=== PATIENT | female | born 1990 | race Caucasian/White ===

== ENCOUNTER 2024-12-12 12:45 | Day surgery (SDC) | payer OTHER ==
[~2024-12-12] VITALS: Ht 167.6 cm; Wt 145.2 kg
[~2024-12-12 12:45] MED LIST: EQL1CAP9 PO; IRON65TA2 PO; K2 P1TAB PO; ceFAZolin SOD 2 GM IV ONCE IV ONE
[2024-12-12 13:31] LABS: HEMATOCRIT 40.4 % (36.0-47.0); MEAN CORPUSCULAR HEMOGLOBIN 21.6 pg (27.0-33.0); MEAN CORPUSCULAR HGB CONC 29.7 g/dl (32.0-36.5); MEAN CORPUSCULAR VOLUME 72.7 fl (80.0-96.0); PLATELET COUNT, AUTOMATED 284 10^3/uL (150-450); RED BLOOD COUNT 5.56 10^6/uL (4.00-5.40); WHITE BLOOD COUNT 13.9 10^3/uL (4.0-10.0)
[2024-12-12] MEDS ORDERED: fentaNYL 100 MCG/2 ML INJECTION As Ordered ONE (16:17)
[2024-12-12] MEDS ORDERED: MIDAZOLAM INJ 2MG/2ML VIAL As Ordered ONE (16:17)
[2024-12-12] MEDS ORDERED: HYDROmorphone HCL 2MG/ML 1ML VIAL As Ordered ONE (16:17)
[2024-12-12] MEDS ORDERED: LIDOCAINE 2% 100MG/5ML SDV (FOR ANES.) As Ordered ONE (16:18)
[2024-12-12] MEDS ORDERED: SUGAMMADEX SODIUM 500 MG/5 ML VIAL (BRIDION) As Ordered ONE (16:18)
[2024-12-12] MEDS ORDERED: METOCLOPRAMIDE INJ 10MG/2ML VIAL As Ordered ONE (16:18)
[2024-12-12] MEDS ORDERED: propofoL 200 MG/20 ML VIAL As Ordered ONE (16:18)
[2024-12-12] MEDS ORDERED: ONDANSETRON 4MG 2ML VIAL As Ordered ONE (16:18)
[2024-12-12] MEDS ORDERED: ROCURONIUM BROMIDE 50MG/5ML VIAL As Ordered ONE (16:18)
[2024-12-12] MEDS ORDERED: KETOROLAC 30 MG/ML 1ML VIAL As Ordered ONE (16:40)
[2024-12-12] MEDS ORDERED: dexmedeTOMIDine (4MCG/ML)200MCG/50ML BTL (PRECEDEX) As Ordered ONE (17:37)
[2024-12-12] MEDS ORDERED: ACETAMINOPHEN 1000MG/100ML IV BAG As Ordered ONE (17:39)
[2024-12-12] MEDS: ceFAZolin SOD 3 GM in DEXTROSE 5% (D5W) MINI-BAG PLU 1... IV ONE (18:04)
[2024-12-12] MEDS ORDERED: ESMOLOL INJ 100MG/10ML VIAL As Ordered ONE (19:30)
[2024-12-12] MEDS ORDERED: fentaNYL 100 MCG/2 ML INJECTION IV PRN (20:40)
[2024-12-12] MEDS ORDERED: oxyCODONE 5MG TAB PO PRN (20:40)
[2024-12-12] MEDS: ONDANSETRON 4MG 2ML VIAL IV PRN (21:17)
[2024-12-12 22:05] VITALS: BP 133/67; TEMP 97.2; O2SAT 96
== END 2024-12-12 23:10 | disposition home or self-care (01) ==
LOC: M SDC 12:45
PROVIDERS: ATTEND Specialist
DX: N92.0 Excessive and frequent menstruation with regular cycle (principal); N84.0 Polyp of corpus uteri; K43.6 Other and unspecified ventral hernia with obstruction, without gangrene; D64.9 Anemia, unspecified; Z88.6 Allergy status to analgesic agent
CPT/HCPCS: 36415; 58570; 81025; 85027; 86850; 86900; 86901; 88307; J0131; J0665; J0690; J1100; J1171; J1805; J1885; J2250; J2405; J2765; J3010; S2900